=== PATIENT | male | born 1960 ===

== ENCOUNTER 2020-05-09 00:14 | Emergency (ER) | payer OTHER ==
[2020-05-09] MEDS: Sodium Chloride 0.9% 500 ML IV SCH (00:37)
[2020-05-09 00:39] LABS: PTT,PARTIAL THROMBOPLSTIN TIME 24.6 SEC (23.2-32.3)
[2020-05-09] MEDS: Sodium Chloride 0.9% 10 ML Syringe FLUSH PRN (00:41)
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
== END 2020-05-09 02:45 ==
LOC: CC.ED 00:14
DX: I63.9 Cerebral infarction, unspecified (principal); I12.0 Hypertensive chronic kidney disease with stage 5 chronic kidney disease or end stage renal disease; E11.22 Type 2 diabetes mellitus with diabetic chronic kidney disease; N18.5 Chronic kidney disease, stage 5; F17.200 Nicotine dependence, unspecified, uncomplicated; Z79.899 Other long term (current) drug therapy; Z79.84 Long term (current) use of oral hypoglycemic drugs
CPT/HCPCS: 36415; 70450; 80053; 80305-QW; 81001; 84484; 85025; 85610; 85730; 93005; 96360; 96361; 99285-25; J7040